=== PATIENT | male | born 1965 | race Caucasian/White ===

== ENCOUNTER 2018-07-27 02:27 | Emergency (ER) | payer BC ==
[~2018-07-27] VITALS: Ht 167.6 cm; Wt 102.3 kg
[2018-07-27 02:34] VITALS: Ht 167.6 cm; Wt 102.3 kg
[2018-07-27] MEDS ORDERED: SULFAMETHOXAZOL1 TA3 PO (02:36)
[2018-07-27] MEDS ORDERED: TYLENOL W/CODEI1 TAB PO (02:36)
[2018-07-27] MEDS ORDERED: LISINOPRIL20 MG PO (02:36)
[2018-07-27 03:10] LABS: BASOPHILS 0.2 % (0-2); EOSINOPHILS 2.9 % (0-7); HEMATOCRIT 42.8 % (42.0-54.0); HEMOGLOBIN 14.7 g/dL (13.5-17.5); IMMATURE GRANULOCYTES 0.2 % (0-5); LYMPHOCYTES 11.3 % (15-50); MCH 30.2 pg (26.0-34.0); MCHC 34.3 g/dL (31.0-37.0); MCV 87.9 fL (80.0-100.0); MEAN PLATELET VOLUME 10.6 fL (7.4-10.4); MONOCYTES 6.8 % (2-11); NEUTROPHILS 78.6 % (40-80); PLATELET COUNT 233 10x3/uL (130-400); RBC 4.87 10x6/uL (4.20-6.10); RDW 13.2 % (11.5-14.5); WBC 10.9 10x3/uL (4.8-10.8)
[2018-07-27 03:32] LABS: ALBUMIN 3.3 g/dL (3.4-5.0); ANION GAP 14.2 mmol/L (8-16); BILIRUBIN - TOTAL 0.4 mg/dL (0.2-1.3); CALCIUM 9.5 mg/dL (8.5-10.1); CARBON DIOXIDE 25.9 mmol/L (21.0-32.0); CREATININE - SERUM 1.1 mg/dL (0.6-1.3); POTASSIUM - SERUM 4.1 mmol/L (3.5-5.1); PROTEIN - SERUM 7.6 g/dL (6.4-8.2)
[2018-07-27] MEDS ORDERED: CLEOCIN HCL300 MG PO (03:55)
[2018-07-27] MEDS ORDERED: HYDROCODON-ACE1 EAC2 PO (03:55)
[2018-07-27 04:04] VITALS: BP 138/72
== END 2018-07-27 04:05 | disposition home or self-care (01) ==
LOC: D.ER 02:27
PROVIDERS: Family Medicine
DX: L03.115 Cellulitis of right lower limb (principal)